=== PATIENT | female | born 1975 | race Caucasian/White ===

== ENCOUNTER 2020-12-11 12:50 | Emergency (ER) | payer SELFPAY ==
[~2020-12-11] VITALS: Ht 160 cm; Wt 65.0 kg
[2020-12-11] MEDS ORDERED: ACETAMINOPHEN 325MG TABLET PO ONE (14:15)
[2020-12-11 16:30] VITALS: BP 128/82
== END 2020-12-11 16:30 | disposition home or self-care (01) ==
LOC: ER 12:50
DX: U07.1 COVID-19 (principal)
CPT/HCPCS: 71045; 93005; 99283